=== PATIENT | female | born 1995 | race Caucasian/White ===

== ENCOUNTER 2017-05-03 21:12 | Emergency (ER) | payer OTHER ==
[2017-05-03 23:15] LABS: Hematocrit 37 % (35-47); Hemoglobin 12.5 g/dl (12.0-16.0); Mean Corpuscular HGB Conc 34 g/dl (31-36); Mean Corpuscular Hemoglobin 28 pg (27-31); Mean Corpuscular Volume 83 fL (80-97); Mean Platelet Volume 7 um3 (7.4-10.4); Red Blood Count 4.41 10^6/ul (4.0-5.4); Red Cell Distribution Width 13 % (10.5-15); White Blood Count 9.2 10^3/ul (3.5-10.8)
[2017-05-03 23:31] LABS: ALT 10 U/L (7-52); AST 14 U/L (13-39); Albumin 3.8 g/dL (3.2-5.2); Alkaline Phosphatase 69 U/L (34-104); Amylase 60 U/L (29-103); Anion Gap 8 mmol/L (2-11); BUN/Creatinine Ratio 18.2 (8-20); Blood Urea Nitrogen 10 mg/dL (6-24); C Reactive Protein 22.29 mg/L (< 5.00); CO2 Carbon Dioxide 25 mmol/L (22-32); Chloride 105 mmol/L (101-111); Creatine Kinase 54 U/L (10-223); EGFR African American 179.4 (>60); EGFR Non-African American 139.5 (>60); Globulin 3.6 g/dL (2-4); Glucose 102 mg/dL (70-100); Lipase 38 U/L (11.0-82.0); Potassium 3.8 mmol/L (3.5-5.0); Sodium 138 mmol/L (133-145); Total Protein 7.4 g/dL (6.4-8.9)
[2017-05-04 00:25] LABS: Urine Bacteria Absent (Absent); Urine Bilirubin Negative (Negative); Urine Glucose Negative (Negative); Urine Nitrite Negative (Negative)
[2017-05-04] MEDS ORDERED: Penicillin VK TAB* 250 MG PO ONE (01:15)
[2017-05-04 02:32] VITALS: BP 115/73
--- NOTE | 2017-05-06 07:57 | PN ---
Progress Note - Progress Note Date of Service: 05/03/17 Note: Urine culture grew E. Coli Patient not placed on medication prior to discharge. Called patient at 8am (05/06/17) left message to call back Need pharmacy and will send rx at that time Svetlana Goddard PA-C
--- NOTE | 2017-05-06 12:44 | ED ---
Lauren Parry Alfonso, scribed for Gema Washington MD on 05/04/17 at 0005 . GI/ HPI - HPI Summary HPI Summary: This patient is a 22 year old F presenting to [facility] with a chief complaint of bright red blood in a BM at approximately 2100 today. She began taking valacyclovir today for oral herpes. She has also been taking Penvik penicillin 500 mg BID since 04/28. She states I was nervous and thought it might be a side effect to the medication. The patient rates the pain 0/10 in severity. Symptoms aggravated by nothing. Symptoms alleviated by nothing. Patient reports diarrhea. Patient denies abdominal pain, and N/V. She switched from ibuprofen to Tylenol earlier today. - History of Current Complaint Chief Complaint: EDGeneral Time Seen by Provider: 05/03/17 23:36 Stated Complaint: BLOOD IN STOOL Hx Obtained From: Patient Onset/Duration: Started Hours Ago - 2100 today, Still Present Timing: Constant Severity: Moderate Current Severity: None Pain Intensity: 0 - /10 Associated Signs and Symptoms: Positive: Diarrhea, Other: - diarrhea. Patient denies abdominal pain, and N/V; pt also has a "cold sore" blister on her right upper lip being treated with Valtrex Aggravating Factor(s): Nothing Alleviating Factor(s): Nothing - Allergy/Home Medications Allergies/Adverse Reactions: Allergies Allergy/AdvReac Type Severity Reaction Status Date / Time No Known Allergies Allergy Verified 05/03/17 21:39 PMH/Surg Hx/FS Hx/Imm Hx Previously Healthy: Yes Sensory History: Denies: Hx Deafness Opthamlomology History: Denies: Hx Legally Blind EENT History: Denies: Hx Deafness - Surgical History Surgery Procedure, Year, and Place: no past surg hx Infectious Disease History: No Infectious Disease History: Denies: Traveled Outside the [place] in Last 30 Days - Family History Known Family History: Positive: Hypertension - Social History Alcohol Use: None Substance Use Type: Reports: None Smoking Status (MU): Never Smoked Tobacco Review of Systems Negative: Fever Positive: Diarrhea, Other - bright red blood in a BM. Negative: Abdominal Pain , Vomiting, Nausea Neurological: Negative Psychological: Normal All Other Systems Reviewed And Are Negative: Yes Physical Exam Triage Information Reviewed: Yes Vital Signs On Initial Exam: Initial Vitals Temp Pulse Resp BP Pulse Ox 98.4 F 110 20 118/62 99 05/03/17 21:37 05/03/17 21:37 05/03/17 21:37 05/03/17 21:37 05/03/17 21:37 Vital Signs Reviewed: Yes Appearance: Positive: No Pain Distress, Well-Nourished, Ill-Appearing - mild Skin: Positive: Warm, Skin Color Reflects Adequate Perfusion, Other - scabbed 0.5cm right upper lip lesion, c/w oral HSV Head/Face: Positive: Other - right upper lip lesion as above Eyes: Positive: Conjunctiva Clear ENT: Positive: Normal ENT inspection Neck: Positive: Supple Respiratory/Lung Sounds: Positive: Clear to Auscultation, Breath Sounds Present , Other - No respiratory distress Cardiovascular: Positive: RRR, Pulses are Symmetrical in both Upper and Lower Extremities, Other - Brisk capillary refill. Negative: Murmur Abdomen Description: Positive: Nontender, Soft Bowel Sounds: Positive: Present Pelvic Exam: Positive: other - RECTAL EXAM: no fissures or fistula or hemorrhoids externally. Mucous in vault, no stool. No bright red blood. Musculoskeletal: Positive: Strength/ROM Intact Neurological: Positive: Sensory/Motor Intact, Alert, Oriented to Person Place, Time, Facial Symmetry, Speech Normal Psychiatric: Positive: Normal - David Coma Scale Coma Scale Total: 15 Diagnostics - Vital Signs Vital Signs Temp Pulse Resp BP Pulse Ox 05/03/17 23:00 111 103/67 98 05/03/17 22:45 109 98 05/03/17 22:44 109/74 05/03/17 21:37 98.4 F 110 20 118/62 99 - Laboratory Lab Results: Lab Results 05/03/17 05/03/17 05/03/17 Range/Units 23:00 23:00 23:00 WBC 9.2 (3.5-10.8) 10^3/ul RBC 4.41 (4.0-5.4) 10^6/ul Hgb 12.5 (12.0-16.0) g/dl Hct 37 (35-47) % MCV 83 (80-97) fL MCH 28 (27-31) pg MCHC 34 (31-36) g/dl RDW 13 (10.5-15) % Plt Count 396 (150-450) 10^3/ul MPV 7 L (7.4-10.4) um3 Neut % (Auto) 57.8 (38-83) % Lymph % (Auto) 32.6 (25-47) % [place] % (Auto) 7.5 (1-9) % Eos % (Auto) 1.6 (0-6) % Baso % (Auto) 0.5 (0-2) % Absolute Neuts (auto) 5.3 (1.5-7.7) 10^3/ul Absolute Lymphs (auto) 3.0 (1.0-4.8) 10^3/ul Absolute Monos (auto) 0.7 (0-0.8) 10^3/ul Absolute Eos (auto) 0.1 (0-0.6) 10^3/ul Absolute Basos (auto) 0 (0-0.2) 10^3/ul Absolute Nucleated RBC 0.01 10^3/ul Nucleated RBC % 0.1 INR (Anticoag Therapy) (0.89-1.11) Sodium 138 (133-145) mmol/L Potassium 3.8 (3.5-5.0) mmol/L Chloride 105 (101-111) mmol/L Carbon Dioxide 25 (22-32) mmol/L Anion Gap 8 (2-11) mmol/L BUN 10 (6-24) mg/dL Creatinine 0.55 (0.51-0.95) mg/dL Est GFR ( Amer) 179.4 (>60) Est GFR (Non-Af Amer) 139.5 (>60) BUN/Creatinine Ratio 18.2 (8-20) Glucose 102 H (70-100) mg/dL Lactic Acid 0.6 (0.5-2.0) mmol/L Calcium 9.0 (8.6-10.3) mg/dL Magnesium 2.0 (1.9-2.7) mg/dL Total Bilirubin 0.30 (0.2-1.0) mg/dL AST 14 (13-39) U/L ALT 10 (7-52) U/L Alkaline Phosphatase 69 (34-104) U/L Total Creatine Kinase 54 (10-223) U/L C-Reactive Protein 22.29 H (< 5.00) mg/L Total Protein 7.4 (6.4-8.9) g/dL Albumin 3.8 (3.2-5.2) g/dL Globulin 3.6 (2-4) g/dL Albumin/Globulin Ratio 1.1 (1-3) Amylase 60 (29-103) U/L Lipase 38 (11.0-82.0) U/L Beta HCG, Quant < 0.60 mIU/mL 05/03/17 Range/Units 23:00 WBC (3.5-10.8) 10^3/ul RBC (4.0-5.4) 10^6/ul Hgb (12.0-16.0) g/dl Hct (35-47) % MCV (80-97) fL MCH (27-31) pg MCHC (31-36) g/dl RDW (10.5-15) % Plt Count (150-450) 10^3/ul MPV (7.4-10.4) um3 Neut % (Auto) (38-83) % Lymph % (Auto) (25-47) % [place] % (Auto) (1-9) % Eos % (Auto) (0-6) % Baso % (Auto) (0-2) % Absolute Neuts (auto) (1.5-7.7) 10^3/ul Absolute Lymphs (auto) (1.0-4.8) 10^3/ul Absolute Monos (auto) (0-0.8) 10^3/ul Absolute Eos (auto) (0-0.6) 10^3/ul Absolute Basos (auto) (0-0.2) 10^3/ul Absolute Nucleated RBC 10^3/ul Nucleated RBC % INR (Anticoag Therapy) 1.10 (0.89-1.11) Sodium (133-145) mmol/L Potassium (3.5-5.0) mmol/L Chloride (101-111) mmol/L Carbon Dioxide (22-32) mmol/L Anion Gap (2-11) mmol/L BUN (6-24) mg/dL Creatinine (0.51-0.95) mg/dL Est GFR ( Amer) (>60) Est GFR (Non-Af Amer) (>60) BUN/Creatinine Ratio (8-20) Glucose (70-100) mg/dL Lactic Acid (0.5-2.0) mmol/L Calcium (8.6-10.3) mg/dL Magnesium (1.9-2.7) mg/dL Total Bilirubin (0.2-1.0) mg/dL AST (13-39) U/L ALT (7-52) U/L Alkaline Phosphatase (34-104) U/L Total Creatine Kinase (10-223) U/L C-Reactive Protein (< 5.00) mg/L Total Protein (6.4-8.9) g/dL Albumin (3.2-5.2) g/dL Globulin (2-4) g/dL Albumin/Globulin Ratio (1-3) Amylase (29-103) U/L Lipase (11.0-82.0) U/L Beta HCG, Quant mIU/mL Result Diagrams: 05/03/17 23:00 05/03/17 23:00 Lab Statement: Any lab studies that have been ordered have been reviewed, and results considered in the medical decision making process. GIGU Course/Dx - Course Assessment/Plan: This patient is a 22 year old F presenting to [facility] with a chief complaint of bright red blood in a BM at approximately 2100 today. She began taking valacyclovir today for oral herpes. She has also been taking Penvik penicillin 500 mg BID since 04/28 for a strep throat. She states I was nervous and thought it might be a side effect to the medication. The patient rates the pain 0/10 in severity. Symptoms aggravated by nothing. Symptoms alleviated by nothing. Patient reports diarrhea. Patient denies abdominal pain, and N/V. She switched from ibuprofen to Tylenol earlier today. In the ED course the patient was given Penicillin VK 500 mg. Stool Occult Blood negative. Pt was unable to produce any stool in the ED, so pt is encouraged to have close follow up and submit stool to [facility] if the symptoms recur. Patient will be discharged with follow up from PCP. The patient is agreeable with this plan. - Diagnoses Differential Diagnoses - Female: Adverse Drug Effect, Constipation, Colitis, Diverticulitis, Esophagitis/Gastritis, Gastroenteritis (Viral), Gastroenteritis (Bacterial), Hemorrhoids, Peptic Ulcer Disease, Rectal Fissure Provider Diagnoses: Bright red blood per rectum, resolving strep Discharge - Discharge Plan Condition: Stable Disposition: HOME Prescriptions: Nitrofurantoin Monohyd Macro [Macrobid] 100 mg PO BID #10 cap Patient Education Materials: Rectal Bleeding (ED) Forms: *School Release, *Work Release Referrals: [facility] - Kody SPAIN [Medical Doctor] - 3 Days Additional Instructions: YOUR BLOOD TESTS WERE WITHIN NORMAL LIMITS TONIGHT, AND WE HAVE PRINTED A COPY OF THEM FOR YOU TO SHOW YOUR DOCTOR AT [facility]. WE GAVE YOU YOUR DOSE OF PEN VK 500 MG IN THE ER. WE ADVISE THAT YOU SHOULD CONTINUE THE VALTREX FOR THE COLD SORE ON YOUR MOUTH DIRECTED. DR WASHINGTON IS CONCERNED THAT YOU COULD BE DEVELOPING A COLITIS, CALLED C DIFFICILE COLITIS FROM BEING ON THE ANTIBIOTICS FOR STREP. YOU SHOULD FINISH THE PENICILLIN, BUT IF THE DIARRHEA OR BLOOD CONTINUES YOU WILL NEED TO HAVE THE STOOL TESTED FOR C DIFFICILE. HAVE CLOSE FOLLOW UP WITH [facility] OR RETURN TO THE EMERGENCY DEPARTMENT FOR NEW OR WORSENING SYMPTOMS. The documentation as recorded by the Lauren gan Alfonso accurately reflects the service I personally performed and the decisions made by me, Gema Washington MD.
--- NOTE | 2017-05-06 16:49 | PN ---
Progress Note - Progress Note Date of Service: 05/06/17 Note: patient called back. script sent to [facility] for macrobid 100mg bid x5 days
--- NOTE | 2017-05-07 09:47 | PN ---
Progress Note - Progress Note Date of Service: 05/03/17 Note: bactrim sent to pharmacy. shows susceptibility on final culture results.
== END 2017-05-04 02:00 | disposition home or self-care (01) ==
LOC: ED 21:12
DX: K62.5 Hemorrhage of anus and rectum (principal); R19.7 Diarrhea, unspecified
CPT/HCPCS: 36415; 80053; 81003; 81015; 82150; 82272; 82550; 83605; 83690; 83735; 84702; 85025; 85610; 86140; 87077; 87086; 87186; 99283; A9270-GY